=== PATIENT | female | born 1990 | race Caucasian/White ===

== ENCOUNTER 2017-02-18 15:31 | Emergency (ER) | payer MEDICAID, OTHER ==
[~2017-02-18] VITALS: Wt 96.5 kg
[2017-02-18] MEDS ORDERED: IBUPROFEN 600 MG TAB PO ONE (17:00)
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
[2017-02-18] MEDS ORDERED: ACET500C5 PO (18:39)
[2017-02-18] MEDS ORDERED: IBUP-1542 PO (18:39)
[2017-02-18] MEDS ORDERED: BACL10TA PO (18:40)
== END 2017-02-18 19:10 | disposition home or self-care (01) ==
LOC: FTE 15:31
DX: R07.89 Other chest pain (principal); M54.5 Low back pain
CPT/HCPCS: 71020; 72100; 93005; Z7502; Z7610